=== PATIENT | male | born 1990 | race Caucasian/White ===

== ENCOUNTER 2018-03-20 18:56 | Emergency (ER) | payer OTHER ==
[~2018-03-20] VITALS: Ht 182.9 cm; Wt 97.5 kg
[~2018-03-20 18:56] MED LIST: KEFLEX500 MG PO
[2018-03-20 19:07] VITALS: BP 130/94
--- NOTE | 2018-03-20 19:26 | ED AMS/SEIZURE/WEAK/DIZZY ---
History of Present Illness General Chief Complaint: ETOH/Drug Related Complaint Stated Complaint: PER MOM TOOK PILLS, ETOH Source: patient Exam Limitations: no limitations Vital Signs & Intake/Output Vital Signs & Intake/Output Vital Signs Date Time Temp Pulse Resp B/P B/P Pulse O2 O2 Flow FiO2 Mean Ox Delivery Rate 03/20 1907 97.3 89 18 130/94 96 Room Air ED Intake and Output 03/21 0000 03/20 1200 Intake Total Output Total Balance Patient 215 lb Weight Weight Reported by Patient Measurement Method Allergies Coded Allergies: No Known Drug Allergies (UNKNOWN 11/02/15) Reconcile Medications No Known Home Medications Triage Note: PT STATES HE WAS DRINKING TODAY UNTIL NOON AND MOTHER THINKS HE TOOK PILLS. PT DENIES TAKING PILLS. PT DENIES WANTING DETOX, MOM STATES SHE DOESN'T WANT TO TAKE HIM HOME BECAUSE SHE IS AFRAID HE WONT WAKE UP. Triage Nurses Notes Reviewed? yes Onset: Gradual Duration: day(s): Timing: recent history Injury Environment: home Severity: moderate Modifying Factors: Improves With: rest. Associated Symptoms: "I just was drinking today." HPI: 27 yo gentleman brought in by his mother due to her concern that "he took something." He shares that he had been drinking "a lot" today. He denies taking any illicit pills or other drugs. He denies SI/HI. He is otherwise well. Past History Travel History Traveled to [place] past 21 day No Medical History Any Pertinent Medical History? see below for history Psychiatric: alcohol dependence Tetanus Vaccine: 11/02/15 Surgical History Surgical History: non-contributory Psychosocial History What is your primary language Armenian Tobacco Use: Current Daily Use Daily Tobacco Use Amount/Type: => 5 Cigarettes daily ETOH Use: alcoholic Illicit Drug Use: denies illicit drug use Family History Hx Contributory? No Review of Systems Review of Systems Constitutional: Reports: no symptoms. EENTM: Reports: no symptoms. Respiratory: Reports: no symptoms. Cardiovascular: Reports: no symptoms. GI: Reports: no symptoms. Genitourinary: Reports: no symptoms. Musculoskeletal: Reports: no symptoms. Skin: Reports: no symptoms. Neurological/Psychological: Reports: no symptoms. Hematologic/Endocrine: Reports: no symptoms. Immunologic/Allergic: Reports: no symptoms. All Other Systems: Reviewed and Negative Physical Exam Physical Exam General Appearance: well developed/nourished, no apparent distress, alert, comfortable Head: atraumatic, normal appearance Eyes: Bilateral: normal appearance, PERRL, EOMI. Ears, Nose, Throat: normal pharynx, hearing grossly normal Neck: normal inspection, supple, full range of motion Respiratory: normal breath sounds, chest non-tender, no respiratory distress, quiet respiration, lungs clear Cardiovascular: regular rate/rhythm, edema, gallop, murmur Gastrointestinal: normal bowel sounds, soft, non-tender Back: normal inspection, normal range of motion Extremities: normal range of motion Neurologic/Psych: no motor/sensory deficits, awake, alert, oriented x 3 Skin: intact, normal color, warm/dry Core Measures ACS in differential dx? No CVA/TIA Diagnosis No Sepsis Present: No Sepsis Focused Exam Completed? No Progress Differential Diagnosis: alcohol intoxication, dehydration, hypoglycemia Plan of Care: Orders Procedure Date/time Status Regular Diet 03/21 B Active EKG 03/20 1922 Active ACETOMINOPHEN 03/20 1920 Complete SALICYLATE 03/20 1920 Complete Continuous Observation Monitor 03/20 1906 Active ETHANOL 03/20 1906 Complete COMPREHENSIVE METABOLIC PANEL 03/20 1906 Complete CBC WITHOUT DIFFERENTIAL 03/20 1906 Complete ED CRISIS PSYCH CONSULT 03/20 1906 Active Laboratory Tests 03/20/181921: Salicylates Cancelled 03/20/181919: Anion Gap 14, Estimated GFR > 60, BUN/Creatinine Ratio 11.4, Glucose 91, Calcium 8.8, Total Bilirubin 0.4, AST 66 H, ALT 71, Alkaline Phosphatase 49, Total Protein 6.8, Albumin 4.2, Globulin 2.6, Albumin/Globulin Ratio 1.6, CBC w Diff NO MAN DIFF REQ, RBC 5.14, MCV 94.2 H, MCH 31.9 H, MCHC 33.8, RDW 13.3, MPV 7.9, Gran % 51.5, Lymphocytes % 36.1, Monocytes % 8.5, Eosinophils % 3.3, Basophils % 0.6, Absolute Granulocytes 3.0, Absolute Lymphocytes 2.1, Absolute Monocytes 0.5, Absolute Eosinophils 0.2, Absolute Basophils 0, Salicylates < 1.0 , Acetaminophen < 10.0 L, Serum Alcohol 336.0 03/20/181909: Salicylates Cancelled, Acetaminophen Cancelled 03/20/181905: Methadone Screen Cancelled, Barbiturate Screen Cancelled, Ur Phencyclidine Scrn Cancelled, Amphetamines Screen Cancelled, U Benzodiazepines Scrn Cancelled, Urine Cocaine Screen Cancelled, Urine Cannabis Screen Cancelled Initial ED EKG: sinus, no acute changes. Departure Departure Disposition: HOME OR SELF CARE Condition: Stable Clinical Impression Primary Impression: Alcohol intoxication Referrals: Patient Has No Primary Care Dr (PCP/Family) Departure Forms: Customer Survey General Discharge Information Prescriptions: Current Visit Scripts No Known Home Medications Comments 03/20/18, 20:13.... pt is awake and alert, denies SI/HI. He denies taking pills. He does not wish to stay. His mother is willing to take him home.
[2018-03-20 19:31] LABS: ABSOLUTE BASOPHIL COUNT 0 /CUMM (0.0-0.2); ABSOLUTE EOSINOPHIL COUNT 0.2 /CUMM (0.0-0.7); ABSOLUTE LYMPH COUNT 2.1 /CUMM (1.2-3.4); ABSOLUTE MONOCYTE COUNT 0.5 /CUMM (0.10-0.60); BASOPHIL % 0.6 % (0.0-2.0); EOSINOPHIL % 3.3 % (0-5); GRANULOCYTE % 51.5 % (42.2-75.2); HEMATOCRIT 48.4 % (42-52); MEAN CORPUSCULAR HGB 31.9 PG (27.0-31.0); MEAN CORPUSCULAR HGB CONC 33.8 G/DL (33.0-37.0); MEAN CORPUSCULAR VOLUME 94.2 FL (80.0-94.0); MEAN PLATELET VOLUME 7.9 FL (7.4-10.4); PLATELET COUNT 270 /CUMM (130-400); RBC DISTRIBUTION WIDTH 13.3 % (11.5-14.5); RED BLOOD CELL CT 5.14 /CUMM (4.70-6.10); WHITE BLOOD CELL COUNT 5.9 /CUMM (4.8-10.8)
== END 2018-03-20 20:21 ==
LOC: ERH 18:56
PROVIDERS: Pediatrics
DX: F10.129 Alcohol abuse with intoxication, unspecified (principal)
CPT/HCPCS: 80307; 93005; 93010; G0480